=== PATIENT | male | born 1955 | race Caucasian/White ===

== ENCOUNTER → 2017-04-17 | Outpatient (CLI) | payer BC ==
[2015-04-02 11:19] VITALS: BP 143/95
[~2017-04-17] MED LIST: ZESTRIL 20MG TA20 MG PO
[2017-04-17 08:22] LABS: HEMATOCRIT 50.5 % (42.0-52.0); HEMOGLOBIN 17.2 g/dL (13.5-18.0); MEAN PLATELET VOLUME 9.4 fl (7.4-10.4); RED BLOOD COUNT 5.55 M/mm3 (4.20-5.60); RED CELL DISTRIBUTION WIDTH 14.1 % (11.5-14.5)
[2017-04-17 08:42] LABS: ALBUMIN 4.1 g/dL (3.5-5.0); BUN/CREATININE RATIO 16.8 (6.0-26.0); CALCIUM 9.4 mg/dL (8.4-10.2); TOTAL BILIRUBIN 1.3 mg/dL (0.2-1.3); TOTAL PROTEIN 7.4 g/dL (6.3-8.2)
[2017-04-17 23:50] LABS: T3 FREE 3.8 pg/mL (1.7-3.7)
== END ==
LOC: LAB 07:51
PROVIDERS: Family Medicine
DX: Z00.00 Encounter for general adult medical examination without abnormal findings (principal); E03.9 Hypothyroidism, unspecified; I10 Essential (primary) hypertension; I65.29 Occlusion and stenosis of unspecified carotid artery

== ENCOUNTER 2017-07-29 16:24 | Emergency (ER) | payer OTHER ==
[~2017-07-29] VITALS: Ht 177.8 cm; Wt 106.8 kg
[2017-07-29] MEDS ORDERED: FISH OIL 1,0001 EAC1 PO (16:42)
[2017-07-29] MEDS ORDERED: NATURE THROID PO (16:42)
[2017-07-29] MEDS ORDERED: TERAZOSIN5 MG PO (16:42)
[2017-07-29] MEDS ORDERED: PREDNISONE20 MG PO (16:42)
[2017-07-29 17:42] LABS: HEMATOCRIT 51.1 % (42.0-52.0); HEMOGLOBIN 17.7 g/dL (13.5-18.0); MEAN CELL VOLUME 91 fl (78-100); MEAN CORPUSCULAR HEMOGLOBIN 31 pg (27-31); MEAN CORPUSCULAR HGB CONC 35 g/dL (33-37); PLATELET COUNT 201 K/mm3 (130-400); RED BLOOD COUNT 5.63 M/mm3 (4.20-5.60); RED CELL DISTRIBUTION WIDTH 13.4 % (11.5-14.5); WHITE BLOOD COUNT 7.9 K/mm3 (4.8-10.8)
[2017-07-29 17:46] LABS: ALBUMIN 4.4 g/dL (3.5-5.0); BUN/CREATININE RATIO 15.8 (6.0-26.0); CALCIUM 9.1 mg/dL (8.4-10.2); POTASSIUM 3.9 mmol/L (3.6-5.0); TOTAL BILIRUBIN 0.8 mg/dL (0.2-1.3); TOTAL PROTEIN 8.5 g/dL (6.3-8.2)
[2017-07-29 17:50] LABS: TROPONIN-I 0.06 ng/mL (0.00-0.06)
[2017-07-29 18:13] LABS: D-DIMER 0.32 mg/L FEU (0.15-0.50)
[2017-07-29 18:33] LABS: URINE COLOR YELLOW
[2017-07-29 18:34] LABS: PH-URINE 6.5 (5.0 - 8.0); URINE APPEARANCE CLEAR; URINE BILIRUBIN NEGATIVE (NEGATIVE); URINE BLOOD TRACE (NEGATIVE); URINE KETONE NEGATIVE (NEGATIVE); URINE LEUKOCYTE ESTERASE NEGATIVE (NEGATIVE); URINE NITRATE NEGATIVE (NEGATIVE); URINE PROTEIN(semi-quant) NEGATIVE (NEGATIVE); URINE UROBILINOGEN NORMAL (NORMAL); URINE WBC 0-1 /hpf (0-3)
[2017-07-29 19:00] LABS: LYMPHOCYTE 13 % (20-51); MONOCYTE 3 % (3-10); NEUTROPHILS 83 % (42-75)
[2017-07-29 20:42] VITALS: BP 158/99
== END 2017-07-29 20:46 | disposition home or self-care (01) ==
LOC: ED 16:24
PROVIDERS: Nurse Practitioner
DX: R05 Cough (principal); R07.9 Chest pain, unspecified; R06.02 Shortness of breath; I10 Essential (primary) hypertension; Z87.891 Personal history of nicotine dependence; Z88.2 Allergy status to sulfonamides; R07.1 Chest pain on breathing
CPT/HCPCS: Q9967

== ENCOUNTER 2017-07-31 06:25 | Emergency (ER) | payer OTHER ==
[~2017-07-31] VITALS: Ht 177.8 cm; Wt 106.8 kg
[~2017-07-31 06:25] MED LIST changes: +FISH OIL 1,0001 EAC1 PO; +NATURE THROID PO; +PREDNISONE20 MG PO; +TERAZOSIN5 MG PO
[2017-07-31 07:16] LABS: EOS # 0.1 (0.04-0.40); EOS % 1.2 % (0.0-4.0); HEMATOCRIT 49.5 % (42.0-52.0); HEMOGLOBIN 17.2 g/dL (13.5-18.0); LYMPH# 2.8 (1.50-4.00); MEAN CELL VOLUME 91 fl (78-100); MEAN CORPUSCULAR HEMOGLOBIN 32 pg (27-31); MEAN CORPUSCULAR HGB CONC 35 g/dL (33-37); MEAN PLATELET VOLUME 9.9 fl (7.4-10.4); MONO # 0.5 (0.20-0.80); PLATELET COUNT 189 K/mm3 (130-400); RED BLOOD COUNT 5.43 M/mm3 (4.20-5.60); RED CELL DISTRIBUTION WIDTH 13.7 % (11.5-14.5); WHITE BLOOD COUNT 6.4 K/mm3 (4.8-10.8)
[2017-07-31 07:34] LABS: CALCIUM 9.2 mg/dL (8.4-10.2); POTASSIUM 4.1 mmol/L (3.6-5.0); TOTAL BILIRUBIN 0.9 mg/dL (0.2-1.3); TOTAL PROTEIN 7.8 g/dL (6.3-8.2)
[2017-07-31 07:36] LABS: TROPONIN-I 0.41 ng/mL (0.00-0.06)
[2017-07-31 08:30] VITALS: BP 99/59
== END 2017-07-31 08:36 | disposition short-term general hospital (02) ==
LOC: ED 06:25
PROVIDERS: Nurse Practitioner
DX: I21.29 ST elevation (STEMI) myocardial infarction involving other sites (principal); I10 Essential (primary) hypertension; Z88.2 Allergy status to sulfonamides; Z53.21 Procedure and treatment not carried out due to patient leaving prior to being seen by health care provider
CPT/HCPCS: J1644; J2270; J2405; J7030

== ENCOUNTER 2017-09-05 08:10 | Outpatient (RCR) | payer OTHER | END 2017-10-21 08:14 | disposition home or self-care (01) | LOC: CARDREHAB 08:10 → CARDLAB 13:16 → CARDREHAB 10-21 08:14 | DX: Z48.812 Encounter for surgical aftercare following surgery on the circulatory system (principal); Z95.5 Presence of coronary angioplasty implant and graft; I25.2 Old myocardial infarction ==

== ENCOUNTER 2022-06-20 08:00 | Outpatient (RCR) | payer MEDICARE, BC | END 2022-07-20 | LOC: PT | DX: M54.50 Low back pain, unspecified (principal); M79.651 Pain in right thigh; M79.652 Pain in left thigh ==